=== PATIENT | male | born 1995 | race Caucasian/White ===

== ENCOUNTER 2018-02-04 12:10 | Emergency (ER) | payer OTHER ==
[2018-02-04] MEDS ORDERED: CEFAZOLIN 2 GM/D5W RTU 2 GM/50 ML RTUPB IV ONE (12:16)
[2018-02-04] MEDS ORDERED: FENTANYL CITRATE INJ/PF 100 MCG/2 ML AMPUL ONE (12:26)
[2018-02-04] MEDS ORDERED: HYDROMORPHONE HCL INJ/PF 2 MG/ML AMPULE ONE ×2 (12:26→13:05)
--- NOTE | 2018-02-04 12:33 | ER Document Report ---
ED General - General Chief Complaint: Hand Injury Stated Complaint: LACERATION TO RIGHT FINGERS/CHAINSAW Time Seen by Provider: 02/04/18 12:20 Mode of Arrival: Ambulatory Information source: Patient, [facility] Records Notes: 22-year-old male presents with partial amputation of his left index and middle finger on the palmar aspect . Patient states that just prior to arrival he was doing tree work cutting down branches when he slipped, grabbed the rope and hung from his fingers for a couple of his friends was able to cut him loose. Patient did not fall to the ground. Patient is still able to move the fingers but has poor cap refill and no sensation with a dusky coloration to his fingertips. He denies any medical problems. He is up-to-date with immunizations including tetanus. He is active . TRAVEL OUTSIDE OF THE [place] IN LAST 30 DAYS: No - HPI Onset: Just prior to arrival Onset/Duration: Sudden Quality of pain: Throbbing Severity: Severe Pain Level: 5 Associated symptoms: None Exacerbated by: Movement, Walking Relieved by: Denies Similar symptoms previously: No Recently seen / treated by doctor: No - Related Data Allergies/Adverse Reactions: No Known Allergies Allergy (Unverified 02/04/18 13:17) Past Medical History - General Information source: Patient, [facility] Records - Social History Smoking Status: Never Smoker Frequency of alcohol use: None Drug Abuse: None Lives with: Family Family History: Reviewed & Not Pertinent Patient has suicidal ideation: No Patient has homicidal ideation: No - Medical History Medical History: Negative Review of Systems - Review of Systems Notes: REVIEW OF SYSTEMS: CONSTITUTIONAL : Denies fever, chills, or sweats. Denies recent illness. Denies weight loss, recent hospitalizations. EENT: Denies visual changes, eye pain. Denies sore throat, oral lesions, difficulty swallowing. CARDIOVASCULAR: Denies chest pain. Denies palpitations. Denies lower extremity edema. RESPIRATORY: Denies cough. Denies shortness of breath, wheezing. GASTROINTESTINAL: Denies abdominal pain or distention. Denies nausea, vomiting , or diarrhea. Denies blood in vomitus, stools, or per rectum. Denies black, tarry stools. Denies constipation. GENITOURINARY: Denies difficulty urinating, painful urination, frequency, blood in urine, testicular pain or penile discharge. MUSCULOSKELETAL: Denies back or neck pain or stiffness. SKIN: Denies rash, lesions or sores. HEMATOLOGIC : Denies easy bruising or bleeding. LYMPHATIC: Denies swollen glands. NEUROLOGICAL: Denies confusion or altered mental status. Denies loss of consciousness. Denies dizziness or lightheadedness. Denies headache. Denies weakness or paralysis. Denies problems difficulty with ambulation, slurred speech. Denies sensory loss, numbness, or tingling. Denies seizures. PSYCHIATRIC: Denies anxiety or stress. Denies depression, suicidal ideation, or Physical Exam - Vital signs Vitals: Resp Pulse Ox 15 100 02/04/18 12:16 02/04/18 12:16 - Notes Notes: PHYSICAL EXAMINATION: GENERAL: Well-appearing, well-nourished and in no acute distress. GCS 15 HEAD: Atraumatic, normocephalic. EYES: Pupils equal round and reactive to light, extraocular movements intact, sclera anicteric, conjunctiva are normal. ENT: Nares patent, oropharynx clear without exudates. Moist mucous membranes. No hemanotympanum . No blood in nares. No dental fracture NECK: Normal range of motion, supple without lymphadenopathy. Trachea midline LUNGS: Breath sounds clear to auscultation bilaterally and equal. No wheezes rales or rhonchi. HEART: Regular rate and rhythm without murmurs. Pulses intact all throughout. ABDOMEN: Soft, nontender, nondistended abdomen. No guarding, no rebound. No masses appreciated. Musculoskeletal: Left hand with lacerations to the left index and middle finger on the palmar aspect. Tendons visualized and intact. Patient able to move both fingers but has decreased cap refill, decreased sensation and dusky color to his fingers. NEUROLOGICAL: Cranial nerves grossly intact. Normal speech, normal gait. Normal sensory, motor, and reflex exams. PSYCH: Normal mood, normal affect. SKIN: Warm, No active bleeding Course - Re-evaluation Re-evalutation: Hand X-Ray 02/04/18 00:00 IMPRESSION: Comminuted fractures of the 2nd and 3rd digit middle phalanges with overlying soft tissue defects. Possible soft tissue injury between the 2nd and 3rd metacarpal phalangeal joints. 22-year-old male presents with significant lacerations to his index middle finger after slipping out of a tree and getting his 2 fingers caught in a rope from which he home by for a few minutes. Upon arrival patient is mildly hypertensive but afebrile, alert, awake. 02/04/18 12:38 I contacted [facility] since the patient is active and they are a trauma center. I was told that they recommend transfer to [facility] because there is no hand surgeon available at this time. I spoke to [facility] trauma services and spoke to the trauma surgeon to explain the patient's physical exam and he recommends ED to ED transfer with plastic surgery or hand consult. I was transferred to the refer direct line and I am awaiting a call back from Dr Dsouza the plastic surgeon who is covering hand today. 02/04/18 13:[address] Dsouza plastic surgeon covering hand for [facility] who has accepted the patient and advises rapid transfer ED to ED. We have secured ground transportation. He does not advise flying at this time. Patient did receive fentanyl, Dilaudid, Ancef, wounds were cleaned and wrapped. Tetanus is up-to-date patient agreeable to transfer. Patient transferred in stable condition. 02/06/18 11:34 - Vital Signs Vital signs: Temp Pulse Resp BP Pulse Ox 12 169/97 H 100 02/04/18 13:16 02/04/18 13:16 02/04/18 13:16 - Diagnostic Test Radiology reviewed: Image reviewed, Reports reviewed Discharge - Discharge Clinical Impression: Partial traumatic metacarpophalangeal amputation of left index finger, sequela , Elevated blood pressure reading Partial traumatic metacarpophalangeal amputation of left middle finger Qualifiers: Encounter type: initial encounter Qualified Code(s): S68.123A - Partial traumatic metacarpophalangeal amputation of left middle finger, initial encounter Condition: Good Disposition: Critical [facility]
[2018-02-04 13:20] VITALS: BP 169/97
--- NOTE | 2018-02-04 13:30 | RADIOLOGY REPORT (SQ) ---
EXAM DESCRIPTION: HAND LEFT 3 VIEWS COMPLETED DATE/TIME: 02/04/2018 12:33 pm REASON FOR STUDY: injury to left hand COMPARISON: None. EXAM PARAMETERS: NUMBER OF VIEWS: Four views. TECHNIQUE: AP, lateral and oblique radiographic images acquired of the left hand. LIMITATIONS: None. FINDINGS: MINERALIZATION: Normal. BONES: Comminuted fractures are seen of both the 2nd and 3rd digit middle phalanges, noting intra-art icular extension and overlying soft tissue defect. On the frontal radiograph the spacing between 2nd and 3rd metacarpal phalangeal joints appears prominent, suggesting underlying soft tissue injury. JOINTS: No effusions. SOFT TISSUES: No retained radiopaque foreign body visualized. OTHER: No other significant finding. IMPRESSION: Comminuted fractures of the 2nd and 3rd digit middle phalanges with overlying soft tissu e defects. Possible soft tissue injury between the 2nd and 3rd metacarpal phalangeal joints. TECHNICAL DOCUMENTATION: JOB ID: [id number] [email or web address] All Rights Reserved Reading location - IP/workstation name: [email or web address]
== END 2018-02-04 13:26 | disposition short-term general hospital (02) ==
LOC: ER 12:10
DX: S68.121A Partial traumatic metacarpophalangeal amputation of left index finger, initial encounter (principal); S61.213A Laceration without foreign body of left middle finger without damage to nail, initial encounter; R03.0 Elevated blood-pressure reading, without diagnosis of hypertension; W23.0XXA Caught, crushed, jammed, or pinched between moving objects, initial encounter
CPT/HCPCS: 99284; 96374; 96375; 73130; J3010; J1170